=== PATIENT | female | born 1925 | race Caucasian/White ===

== ENCOUNTER → 2016-11-26 | Outpatient (CLI) | payer MEDICARE ==
[~2016-11-26] MED LIST: FLEXERIL 10 MG10 MG PO; HYDROCHLOROTHIA50 MG PO; MIDAMOR TAB 5 MG5 MG PO; TYLENOL 325MG325 MG PO; [UNRECOGNIZED DRUG - OTHER] PO
== END ==
LOC: RAD 12:07
DX: M79.641 Pain in right hand (principal); M19.041 Primary osteoarthritis, right hand
CPT/HCPCS: 73130